=== PATIENT | male | born 1970 | race Caucasian/White ===

== ENCOUNTER 2021-02-11 09:18 | Emergency (ER) | payer BC ==
[2021-02-11] MEDS ORDERED: Lidocaine 1% with EPINEPHrine 1:100,000 10 ML MDV INJECT ONE (09:57)
[2021-02-11] MEDS ORDERED: Lidocaine/EPINEPHrine/Tetracaine Soln 1 ML TOP ONE (09:57)
--- NOTE | 2021-02-11 10:03 | EDM.PDOC ---
ED HPI GENERAL MEDICAL PROBLEM - General Chief Complaint: Skin Complaint Stated Complaint: SKIN COMPLAINT Time Seen by Provider: 02/11/21 09:43 Source of Information: Reports: Patient History Limitations: Reports: No Limitations - History of Present Illness INITIAL COMMENTS - FREE TEXT/NARRATIVE: The patient presents from the walk in clinic for a "cyst" in the back of his head. He had one opened up about 3 weeks ago in [place]. He was put on keflex for a week. He was doing good until a couple days ago and the swelling and pain has increased. He has no fever or chills. He was told at the walk in clinic that someone form surgery will be contacting him and he was put on an antibiotic. Onset: Gradual Duration: Day(s): (3) Location: Reports: Head Quality: Reports: Sharp Severity: Severe Improves with: Reports: None Worsens with: Reports: None Associated Symptoms: Reports: No Other Symptoms - Related Data Allergies Allergy/AdvReac Type Severity Reaction Status Date / Time acetaminophen [From Tylenol] AdvReac Tachycardia Verified 02/11/21 10:20 diphenhydramine AdvReac Excitabilit Verified 02/11/21 10:20 [From Benadryl] y shellfish derived AdvReac Abdominal Verified 02/11/21 10:20 Cramps ED ROS GENERAL - Review of Systems Review Of Systems: See Below Constitutional: Reports: No Symptoms HEENT: Reports: No Symptoms Respiratory: Reports: No Symptoms Cardiovascular: Reports: No Symptoms Endocrine: Reports: No Symptoms GI/Abdominal: Reports: No Symptoms : Reports: No Symptoms Musculoskeletal: Reports: No Symptoms Skin: Reports: Other (Cyest or abscess to the back of his head) ED EXAM, SKIN/RASH Exam: See Below Exam Limited By: No Limitations General Appearance: Alert, No Apparent Distress Ears: Normal External Exam Nose: Normal Inspection Head: Other (Tender, fluctuant area to the occipital region of his head with some erythema) Neck: Normal Inspection, Supple, Non-Tender Respiratory/Chest: No Respiratory Distress ED SKIN PROCEDURES - I&D Site: Occipital region of head Skin Prep: Other (Chlorprep) Local Anesthesia: Lidocaine: 1% with EPI (and LET) Local Anesthetic Volume: 2cc Area Incised With: 11 Blade Drainage: Purulent, Bloody, Moderate Amount Probed to Break Up Loculations: Yes Packed With: 1/2 in. Iodoform Complications: No Course - Vital Signs Last Recorded V/S: Last Vital Signs Temp 98.1 F 02/11/21 09:42 Pulse 68 02/11/21 09:42 Resp 16 02/11/21 09:42 BP 136/89 02/11/21 09:42 Pulse Ox 97 02/11/21 09:42 - Orders/Labs/Meds Meds: Medications Discontinued Medications Generic Name Dose Route Start Last Admin Trade Name Toshia PRN Reason Stop Dose Admin Lidocaine/Epinephrine 10 ml 02/11/21 10:30 Lidocaine 1% With Epinephrine 1:100,000 20 Ml Mdv INJECT 02/11/21 10:31 ONETIME ONE Lidocaine/Tetracaine 1 ml 02/11/21 09:57 02/11/21 10:15 Lidocaine/Epinephrine/Tetracaine Soln 1 Ml TOP 02/11/21 09:58 1 ml ONETIME ONE Administration - Re-Assessments/Exams Free Text/Narrative Re-Assessment/Exam: 02/11/21 10:02 I will put some LET of the wound and use dome lidocaine with epinephrine to anesthetize the area and open it up with a scalpel. 02/11/21 11:18 It appeared to be more of an abscess then a cyst. I did get cultures. I will hold off on antibiotics for now. Antibiotics really tear up his stomach. I will refer him to Dr Fofana. Departure - Departure Time of Disposition: 11:25 Disposition: Home, Self-Care 01 Condition: Good Clinical Impression: Abscess - Discharge Information *PRESCRIPTION DRUG MONITORING PROGRAM REVIEWED*: Not Applicable *COPY OF PRESCRIPTION DRUG MONITORING REPORT IN PATIENT NICOLAS: Not Applicable Referrals: PCP,Not In Area [Primary Care Provider] - Helen Solomon MD [Physician] - 1 Week Forms: ED Department Discharge Additional Instructions: Try to let the packing in for about 4 to 5 days. If if comes out sooner that is fine. Wash the area with warm soapy water 2 times per day. Do not scrub to hard, that may remove the packing. Take tylenol or motrin for any pain. Follow up with Dr Fofana within a week. Please return if you are worse. Sepsis Event Note (ED) - Evaluation Sepsis Screening Result: No Definite Risk - Focused Exam Vital Signs: Vital Signs Temp Pulse Resp BP Pulse Ox 02/11/21 09:42 98.1 F 68 16 136/89 97
[2021-02-11] MEDS ORDERED: Lidocaine 1% with EPINEPHrine 1:100,000 20 ML MDV INJECT ONE (10:30)
== END 2021-02-11 11:50 | disposition home or self-care (01) ==
LOC: JD.ED 09:18
DX: L02.811 Cutaneous abscess of head [any part, except face] (principal)
CPT/HCPCS: 10060; 87070; 87075; 87205; 99283; 99283-25